=== PATIENT | female | born 1985 | race Caucasian/White ===

== ENCOUNTER 2020-07-12 00:29 | Emergency (ER) | payer BC ==
[~2020-07-12] VITALS: Ht 157.5 cm; Wt 54.4 kg
--- NOTE | 2020-07-12 00:49 | Emergency Room Report ---
History of Present Illness General Chief Complaint: Pain Source: Patient Present Illness [facility] This is a 35-year-old female with no past medical history. She presents with chief complaint of right calf pain. Couple weeks ago, she had hormonal treatment to harvest her eggs for future in vitro fertilization. Today she woke up with right calf pain. She was worried that she may have a blood clot. No swelling. Pain is achy in nature. No fever chills but no nausea no vomiting. Nothing made it better. Not made it worse. No other complaint. 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: No - july 03 COVID-19 Screening: Negative COVID-19 COVID-19 Testing Source: [facility] Patient History Past Medical History: none, see triage record, old chart reviewed Past Surgical History: none Pertinent Family History: none Social History: Denies: smoking Last Menstrual Period: currently on it Immunizations: other Reviewed Nursing Documentation: PMH: Agreed; PSxH: Agreed Nursing Documentation-PMH Past Medical History: No Stated History Review of Systems Eye: Denies: eye pain, blurred vision ENT: Denies: ear pain, nose congestion, throat swelling Respiratory: Denies: cough, shortness of breath Cardiovascular: Denies: chest pain, palpitations Gastrointestinal: Denies: abdominal pain, diarrhea, nausea, vomiting Musculoskeletal: Reports: muscle pain; Denies: back pain, joint pain Skin: Denies: rash Neurological: Denies: headache, numbness Endocrine: Denies: increased thirst, increased urine Hematologic/Lymphatic: Denies: easy bruising All Other Systems: negative except mentioned in HPI Physical Exam Vital Signs Date Time Temp Pulse Resp B/P (MAP) Pulse Ox O2 Delivery O2 Flow Rate FiO2 07/12/20 00:32 98.2 78 18 131/82 (98) 96 Room Air Vitals normal Sp02 EP Interpretation: reviewed, normal General Appearance: well appearing, no apparent distress, alert Head: normocephalic, atraumatic Eyes: bilateral eye PERRL, bilateral eye EOMI ENT: hearing grossly normal, normal pharynx Neck: full range of motion, supple, no meningismus Respiratory: chest non-tender, lungs clear, normal breath sounds Cardiovascular #1: regular rate, rhythm, no murmur Gastrointestinal: normal bowel sounds, non tender, no mass, no organomegaly, no bruit, non-distended Musculoskeletal: back normal, normal range of motion, gait/station normal Psychiatric: mood/affect normal Medical Decision Making Diagnostic Impression: Primary Impression: Right calf pain ER Course This patient presents with right calf pain. No evidence of DVT. I see no evidence of any muscle tear or infection. CT/MRI/US Diagnostic Results CT/MRI/US Diagnostic Results : Imaging Test Ordered: Right leg ultrasound Impression Read by aviation consultant. Negative for DVT. Last Vital Signs Date Time Temp Pulse Resp B/P (MAP) Pulse Ox O2 Delivery O2 Flow Rate FiO2 07/12/20 00:32 98.2 78 18 131/82 (98) 96 Room Air Status: improved Disposition: HOME, SELF-CARE Condition: Stable Scripts Ibuprofen* (MOTRIN*) 600 Mg Tablet 600 MG ORAL Q6H PRN for For Pain, #30 TAB 0 Refills Prov: Alvaro Vargas MD 07/12/20 Referrals: NOT CHOSEN [facility]/,REFERRING (PCP) Additional Instructions: Follow-up with your doctor in 7 days. Return if symptoms worsen. Alvaro Vargas MD Jul 12, 2020 00:49
[2020-07-12 01:11] VITALS: BP 131/82
[2020-07-12] MEDS ORDERED: IBUPROFEN600 M1 ORAL (01:56)
[2020-07-12 02:04] VITALS: BP 120/78
--- NOTE | 2020-07-12 02:05 | NUR ---
ER DISCHARGE NOTE: Patient ambulatory came in with complaints of lower right leg pain, US completed vitals stable, Patient is cleared to be discharged per ERMD, pt is aox4, on room air, with stable vital signs. pt was given dc and prescription instructions, pt was able to verbalize understanding, pt id band and iv site removed without complications. pt is able to ambulate with steady gait. pt took all belongings.
--- NOTE | 2020-07-12 06:42 | Diagnostic Imaging Report ---
EXAM: US Duplex Right Lower Extremity Veins CLINICAL HISTORY: PAIN TECHNIQUE: Real-time duplex ultrasound scan of the right lower extremity veins integrating B-mode two-dimensional vascular structure, Doppler spectral analysis, color flow Doppler imaging and compression. COMPARISON: No relevant prior studies available. FINDINGS: Deep veins: Unremarkable. No DVT in the visualized common femoral, femoral, proximal deep femoral or popliteal veins. The veins demonstrate normal color flow, are normally compressible, with normal phasic flow and/or augmentation response. Superficial veins: Unremarkable. No thrombus in the greater saphenous vein. Soft tissues: No acute findings. IMPRESSION: No DVT within the right lower extremity.
== END 2020-07-12 02:05 | disposition home or self-care (01) ==
LOC: EMR 00:47
DX: M79.661 Pain in right lower leg (principal)
CPT/HCPCS: 93971; 99284